=== PATIENT | male | born 1960 | race Hispanic/Latino ===

== ENCOUNTER 2016-12-18 17:48 | Emergency (ER) | payer OTHER ==
[2016-12-18 18:00] VITALS: BMI 28.5
[2016-12-18 18:08] VITALS: TEMP 98.1
--- NOTE | 2016-12-18 18:15 | ED PDOC ---
Arrival/HPI - General Chief Complaint: Upper Extremity Problem/Injury Time Seen by Provider: 12/18/16 18:10 Historian: Patient - History of Present Illness Narrative History of Present Illness (Text): 12/18/16 18:12 56yo male with no PMHx who present with complaint of sharp left pain. States pain started 2weeks ago after a fall. He was seen at a different ED and xray was negative at that time. states pain started again today when he lifted his arm to get an object. States he did not get any pain medication. Denies chest pain, SOB, weakness, paresthesia, any other complaint. Past Medical History - Provider Review Nursing Documentation Reviewed: Yes - Cardiac Hx Cardiac Disorders: No - Pulmonary Hx Respiratory Disorders: No - Neurological Hx Neurological Disorder: No - HEENT Hx HEENT Disorder: No - Renal Hx Renal Disorder: No - Endocrine/Metabolic Hx Endocrine Disorders: Yes Hx Diabetes Mellitus Type 2: Yes - Hematological/Oncological Hx Blood Disorders: No - Integumentary Hx Dermatological Disorder: No - Musculoskeletal/Rheumatological Hx Musculoskeletal Disorders: Yes Other/Comment: Left shoulder dislocation - Gastrointestinal Hx Gastrointestinal Disorders: No - Genitourinary/Gynecological Hx Genitourinary Disorders: Yes Hx Prostate Problems: Yes - Psychiatric Hx Psychophysiologic Disorder: No Hx Substance Use: No - Anesthesia Hx Anesthesia: No Family/Social History - Physician Review Nursing Documentation Reviewed: Yes Family/Social History: Unknown Family HX Smoking Status: Unknown If Ever Smoked Hx Alcohol Use: No Hx Substance Use: No Allergies/Home Meds Allergies/Adverse Reactions: Allergies No Known Allergies Allergy (Verified 12/18/16 18:00) Home Medications: Home Meds Medication Instructions Recorded Confirmed Tamsulosin [Flomax] 0.4 mg PO DAILY 12/18/16 12/18/16 Review of Systems - Physician Review All systems were reviewed & negative as marked: Yes - Review of Systems Constitutional: Normal Eyes: Normal ENT: Normal Respiratory: Normal Cardiovascular: Normal Gastrointestinal: Normal Genitourinary Male: Normal Musculoskeletal: Arthralgias (Left shoulder pain) Skin: Normal Neurological: Normal Endocrine: Normal Hemo/Lymphatic: Normal Psychiatric: Normal Physical Exam Vital Signs Reviewed: Yes Vital Signs Temp Pulse Resp BP Pulse Ox 12/18/16 17:48 98.1 F 88 17 136/90 97 Temperature: Afebrile Blood Pressure: Normal Pulse: Regular Respiratory Rate: Normal Appearance: Positive for: Well-Appearing, Non-Toxic, Comfortable Pain Distress: None Mental Status: Positive for: Alert and Oriented X 3 - Systems Exam Head: Present: Atraumatic, Normocephalic Pupils: Present: PERRL Extroacular Muscles: Present: EOMI Conjunctiva: Present: Normal Mouth: Present: Moist Mucous Membranes Neck: Present: Normal Range of Motion Respiratory/Chest: Present: Clear to Auscultation, Good Air Exchange. No: Respiratory Distress, Accessory Muscle Use Cardiovascular: Present: Regular Rate and Rhythm, Normal S1, S2. No: Murmurs Abdomen: Present: Normal Bowel Sounds. No: Tenderness, Distention, Peritoneal Signs Back: Present: Normal Inspection Upper Extremity: Present: NORMAL PULSES, Tenderness (Anterior AC joint), Neurovascularly Intact, Capillary Refill < 2s. No: Cyanosis, Edema, Normal ROM (Limited on abduction up to 75degree), Swelling, Erythema, Temperature Abnormalties, Deformity Lower Extremity: Present: Normal Inspection. No: Edema Neurological: Present: GCS=15, CN II-XII Intact, Speech Normal Skin: Present: Warm, Dry, Normal Color. No: Rashes Psychiatric: Present: Alert, Oriented x 3, Normal Insight, Normal Concentration Medical Decision Making ED Course and Treatment: 12/18/16 18:31 Left shoulder xray - No acute finding REsutl was DW the pt. He have arm sling at home advised to use it. Rx of Naprosyn 500mg given. Referred to his PMD/ortho. TRT ED for any new or worsening symptoms. - RAD Interpretation Radiology Orders: 12/18/16 18:10 SHOULDER LEFT [RAD] Stat - Medication Orders Current Medication Orders: Discontinued Medications Ketorolac Tromethamine (Toradol) 60 mg IM STAT STA Stop: 12/18/16 18:12 Disposition/Present on Arrival - Present on Arrival Any Indicators Present on Arrival: No History of DVT/PE: No History of Uncontrolled Diabetes: No Urinary Catheter: No History of Decub. Ulcer: No History Surgical Site Infection Following: None - Disposition Have Diagnosis and Disposition been Completed?: Yes Diagnosis: Shoulder pain Disposition: HOME/ ROUTINE Disposition Time: 18:35 Patient Plan: Discharge Condition: STABLE Discharge Instructions (ExitCare): Shoulder Pain (ED) Additional Instructions: Follow up with your doctor/Orthopedist Return to ED for any new or worsening symptoms Prescriptions: Naproxen [Naprosyn] 500 mg PO BID #20 tab Acetaminophen with Codeine [Tylenol with Codeine #3 Tablet] 1 each PO Q6 #6 tablet Referrals: Graham Cherry DO [Staff Provider] - Follow up with primary
[2016-12-18] MEDS ORDERED: Oxycodone/Acetaminophen 5/325 mg Tab PO STA (18:37)
[2016-12-18 18:56] VITALS: BP 120/88; PULSE 81; RESP 16; O2SAT 98
--- NOTE | 2016-12-19 08:04 | RAD ---
PROCEDURE: Radiographs of the Left Shoulder HISTORY: shoulder pain COMPARISON: No prior. FINDINGS: BONES: Normal. No fracture. JOINTS: Normal. Glenohumeral and acromioclavicular joints preserved. No osteoarthritis. SOFT TISSUES: Normal. OTHER FINDINGS: None. IMPRESSION: Normal radiographs of the left shoulder.
== END 2016-12-18 18:56 | disposition home or self-care (01) ==
LOC: ED 17:48 → MERGE 17:48 → ED 18:56
DX: M25.512 Pain in left shoulder (principal)